=== PATIENT | female | born 1950 | race Caucasian/White ===

== ENCOUNTER → 2016-09-20 | Outpatient (CLI) | payer MEDICARE ==
[~2016-09-20] MED LIST: ASPIRIN PO; CALCIUM PO; CERTAGEN PO; FLAGYL PO; LEVAQUIN PO; LIPITOR PO; LISINOPRIL PO; LOPRESSOR PO; NASONEX17 GM; OYSTER CALCIUM500 MG PO; TRENTAL400 MG PO; [UNRECOGNIZED DRUG - OTHER] PO
--- NOTE | ~2016-09-20 | MY11 ---
[facility] A Service [facility] RADIOLOGY TEXT RESULTS PATIENT: HERMELINDA BRUSH LOCATION: [facility] : 46 UNIT #: [id number] AGE: [address]: Precious Puckett MD SEX: F ORDER DR: [id number] [place] [id number] O MR#: [id number] Acc #: [id number] NAME: HERMELINDA BRUSH : 1950 SEX: F STUDY DATE/TIME: 09/20/2016 10:43 UNIT: [facility] ROOM: STUDY DESCRIPTION: MY Mammogram Screening Dig Justin Attending Physician: Precious Puckett M.D. Referring Physician: Precious Puckett M.D. Ordering Physician: Precious Puckett M.D. Primary Care Physician: Precious Puckett M.D. MEDICAL IMAGING REPORT This report is preliminary unless electronic signature is present. EXAM Bilateral Digital Screening Mammogram with CAD INDICATION Breast cancer screening. 65-year-old asymptomatic female with history of prior benign right breast biopsy. No personal or family history of breast cancer. COMPARISON September 11, 2015 September 09, 2014 September 06, 2013 August 28, 2012 August 16, 2011 August 13, 2010 July 19, 2009 July 29, 2008 and August 08, 2007 FINDINGS There are scattered fibroglandular tissues. No suspicious findings are present. IMPRESSION No mammographic evidence of malignancy. Annual screening mammography and clinical breast exam are recommended. A result letter will be sent to the patient. Patients over the age of 40 are entered into a reminder system with target due date for the next mammogram. BIRADS: 1 Negative Dictated by... Cecilio Duque M.D. [facility] A Service [facility] RADIOLOGY TEXT RESULTS PATIENT: HERMELINDA BRUSH LOCATION: [facility] : 46 UNIT #: [id number] AGE: [address]: Precious Puckett MD SEX: F ORDER DR: THIS IS AN ELECTRONICALLY VERIFIED REPORT Cecilio Duque M.D. at 09/23/2016 9:24 AM KATIANA/lisa TD: 09/20/2016 23:21 JOB #: [id number] MEDICAL IMAGING REPORT
== END | disposition home or self-care (01) ==
LOC: SMAM 09:48
DX: Z12.31 Encounter for screening mammogram for malignant neoplasm of breast (principal); Z91.89 Other specified personal risk factors, not elsewhere classified; Z98.890 Other specified postprocedural states
CPT/HCPCS: G0202